=== PATIENT | female | born 1980 | race Caucasian/White ===

== ENCOUNTER 2017-08-30 07:42 | Emergency (ER) | payer SELFPAY ==
[~2017-08-30] VITALS: Ht 165.1 cm; Wt 129.7 kg
[2017-08-30 07:50] VITALS: BP 143/82
[2017-08-30] MEDS ORDERED: IV NORMAL SALINE 1,000ML 1,000 ML IV ONE (08:15)
--- NOTE | 2017-08-30 08:37 | EKG ---
[address] [address] Test Date: 2017-08-30 Test Time: 08:35:09 Pat Name: KRYS SIMMS Department: Room: Gender: F Product Specialist: CHRISTIANO : 1980 Requested By: SIDNEY QUINTANILLA Order Number: [id number] Reading MD: Castro Carlson MD Measurements Intervals [place] Rate: 82 P: 26 NM: 146 QRS: 31 QRSD: 86 T: 32 QT: 370 QTc: 435 Interpretive Statements SINUS RHYTHM Electronically Signed On 09-03-2017 10:40:14 [employer] by Castro Carlson MD
--- NOTE | 2017-08-30 08:38 | ED.ADGEN ---
Past History Past Medical History: Arthritis, Diabetes, Fibromyalgia Past Surgical History: Appendectomy Alcohol Use: None Adult General Chief Complaint Chief Complaint dizzy, low back ache, sleepiness HPI HPI Patient is a 37 year old female who presents with multiple complaints, primarily feeling fatigued since yesterday. She states she has had increased sleepy feeling since yesterday. Denies fever or dysuria, but reports bilateral low back aching. Reports h/o fibromyalgia, takes gapapentin and celbrex, which works well. Did not yet get flu shot this year. Denies known h/o thyroid problems. No cp/sob/cough/n/v/abd pain. PCP is Robby Perez. Review of Systems Review of Systems Constitutional: Denies fever or chills [] Eyes: Denies change in visual acuity, redness, or eye pain [] HENT: Denies nasal congestion or sore throat [] Respiratory: Denies cough or shortness of breath [] Cardiovascular: Denies chest pain GI: Denies abdominal pain, nausea, vomiting, bloody stools or diarrhea [] : Denies dysuria or hematuria [] Musculoskeletal: per hpi Integument: Denies rash or skin lesions [] Neurologic: Denies headache, focal weakness or sensory changes [] All other systems were reviewed and found to be within normal limits, except as documented in this note. Current Medications Current Medications Current Medications Medications (Trade) Dose Ordered Sig/Art Start Time Stop Time Status Last Admin Dose Admin Ketorolac Tromethamine (Toradol) 30 mg 1X ONCE 08/30/17 09:30 08/30/17 09:31 DC 08/30/17 09:20 30 MG Sodium Chloride 1,000 ml @ 1,000 mls/hr 1X ONCE 08/30/17 08:15 08/30/17 09:14 DC 08/30/17 09:03 1,000 MLS/HR Allergies Allergies Allergies Coded Allergies Type Severity Reaction Last Updated Verified aspirin Allergy Intermediate 08/30/17 Yes morphine Allergy Intermediate 08/30/17 Yes Physical Exam Physical Exam Constitutional: Well developed, well nourished, no acute distress, non-toxic appearance. Obese, thin hair, appears somewhat drowsy but when I had entered the room, pt was playing on her phone HENT: Normocephalic, atraumatic, bilateral external ears normal, oropharynx moist, no oral exudates, nose normal. [] Eyes: PERRLA, EOMI, conjunctiva normal, no discharge. [] Neck: Normal range of motion, no tenderness, supple, no stridor. [] Cardiovascular:Heart rate regular with regular rhythm, no murmur [] Lungs & Thorax: Bilateral breath sounds clear to auscultation , no wheeze, crackles or rhonchi Abdomen: soft, no tenderness, no masses, no pulsatile masses. [] Skin: Warm, dry, no erythema, no rash. [] Back: No midline tenderness,mild bilateral CVA tenderness. [] Extremities: No tenderness, no cyanosis, no clubbing, ROM intact, no edema. [] Neurologic: Alert and oriented X 3, normal motor function, normal sensory function, no focal deficits noted. CN II-XII intact Psychologic: Affect normal, judgement normal, mood normal. [] Current Patient Data Vital Signs Vital Signs Date Time Temp Pulse Resp B/P (MAP) Pulse Ox O2 Delivery O2 Flow Rate FiO2 08/30/17 07:50 98.8 95 16 96 Room Air Lab Results Laboratory Tests Test 08/30/17 08:22 08/30/17 08:30 08/30/17 08:35 08/30/17 08:50 White Blood Count 9.6 x10^3/uL (4.0-11.0) Red Blood Count 5.80 x10^6/uL (3.50-5.40) H Hemoglobin 15.7 g/dL (12.0-15.5) H Hematocrit 45.9 % (36.0-47.0) Mean Corpuscular Volume 79 fL (79-100) Mean Corpuscular Hemoglobin 27 pg (25-35) Mean Corpuscular Hemoglobin Concent 34 g/dL (31-37) Red Cell Distribution Width 14.5 % (11.5-14.5) Platelet Count 340 x10^3/uL (140-400) Neutrophils (%) (Auto) 67 % (31-73) Lymphocytes (%) (Auto) 24 % (24-48) Monocytes (%) (Auto) 5 % (0-9) Eosinophils (%) (Auto) 3 % (0-3) Basophils (%) (Auto) 1 % (0-3) Neutrophils # (Auto) 6.5 x10^3uL (1.8-7.7) Lymphocytes # (Auto) 2.3 x10^3/uL (1.0-4.8) Monocytes # (Auto) 0.5 x10^3/uL (0.0-1.1) Eosinophils # (Auto) 0.3 x10^3/uL (0.0-0.7) Basophils # (Auto) 0.1 x10^3/uL (0.0-0.2) Urine Collection Type Unknown Urine Color Melody Urine Clarity Clear Urine pH 5.5 Urine Specific [place] 1.025 Urine Protein Neg (NEG-TRACE) Urine Glucose (UA) 100 mg/dL (NEG) Urine Ketones (Stick) 15 mg/dL (NEG) Urine Blood Small (NEG) Urine Nitrite Neg (NEG) Urine Bilirubin Neg (NEG) Urine Urobilinogen Dipstick 0.2 mg/dL (0.2 mg/dL) Urine Leukocyte Esterase Neg (NEG) Influenza Type A (Rapid) Negative (NEGATIVE) Influenza Type B (Rapid) Negative (NEGATIVE) Urine Opiates Screen Neg (NEG) Urine Methadone Screen Neg (NEG) Urine Barbiturates Neg (NEG) Urine Phencyclidine Screen Neg (NEG) Urine Amphetamine/Methamphetamine Neg (NEG) Urine Benzodiazepines Screen Neg (NEG) Urine Cocaine Screen Neg (NEG) Urine Cannabinoids Screen Neg (NEG) Urine Ethyl Alcohol Neg (NEG) Test 08/30/17 09:41 POC Hemoglobin 15.6 gm/dL POC Hematocrit 46 % POC Sodium 135 mmol/L (135-145) POC Potassium 3.9 mmol/L (3.5-5.0) POC Chloride 99 mmol/L (98-110) POC Total CO2 24 mmol/L (23-32) Anion Gap 16 mmol/L (6-14) H POC Blood Urea Nitrogen 11 mg/dL (8-26) POC Creatinine 0.6 mg/dL (0.5-1.4) Glucose Level 253 mg/dL (60-99) H POC Ionized Calcium ([place]) 1.16 mmol/L (1.13-1.32) EKG EKG 82 bpm, sinus, normal axis, normal intervals, no ST elevation or depression, T waves nonischemic, interpreted by me.[] Radiology/Procedures Radiology/Procedures [] Course & Med Decision Making Course & Med Decision Making Pertinent Labs and Imaging studies reviewed. (See chart for details) pt given IV fluids, ua, labs, ekg obtained. Cr normal, IV Toradol given. No acute findings on labs/ua/ekg. Neuro exam normal. I suspect the patient may have unwanted side effects of her pain relieving medications. I recommended the pt get rest, f/u closely with Dr. Perez and return to the ER if any worsening or new concerning symptoms. Pt agreeable. After the pt left, she did go to her PCP, Dr. Perez. He called and wondered why CT head was not performed. I explained that pt did not have any signs of intracranial injury or bleed, her CN II-XII intact, no focal deficits. I offered for pt to return and have CT of head performed through ER or as outpt. He stated he would inform the patient. I then contacted the pt to explain the same, the reported the patient went home to rest because she normally gets "more" tired after receiving Toradol (which she received in the ED) and they wanted to see how pt did after sleeping more. I again stated strict return precautions and they stated they might return today if she didn't improve. TSH is still pending at 1200 Final Impression Final Impression Fatigue Myalgias[] Problems: Dragon Disclaimer Dragon Disclaimer This electronic medical record was generated, in whole or in part, using a voice recognition dictation system. SIDNEY QUINTANILLA MD Aug 30, 2017 08:38
[2017-08-30 08:41] LABS: BASO # 0.1 x10^3/uL (0.0-0.2); BASO % 1 % (0-3); EOS # 0.3 x10^3/uL (0.0-0.7); EOS % 3 % (0-3); HEMATOCRIT 45.9 % (36.0-47.0); HEMOGLOBIN 15.7 g/dL (12.0-15.5); LYMPH # 2.3 x10^3/uL (1.0-4.8); LYMPH % 24 % (24-48); MEAN CORPUSCULAR HEMOGLOBIN 27 pg (25-35); MEAN CORPUSCULAR HGB CONC 34 g/dL (31-37); MEAN CORPUSCULAR VOLUME 79 fL (79-100); MONO # 0.5 x10^3/uL (0.0-1.1); MONO % 5 % (0-9); NEUT # 6.5 x10^3uL (1.8-7.7); NEUT % 67 % (31-73); PLATELET COUNT 340 x10^3/uL (140-400); RED CELL DISTRIBUTION WIDTH 14.5 % (11.5-14.5); WHITE BLOOD COUNT 9.6 x10^3/uL (4.0-11.0)
[2017-08-30 08:48] LABS: HEMOGLOBIN ISTAT 15.6 gm/dL; POTASSIUM ISTAT 3.9 mmol/L (3.5-5.0)
[2017-08-30 09:08] LABS: INFLUENZA A PATIENT NEGATIVE (NEGATIVE); INFLUENZA B PATIENT NEGATIVE (NEGATIVE)
[2017-08-30 09:20] LABS: AMPHETAMINE/METHAMPHETAMINE NEG (NEG); BARBITURATES NEG (NEG); BENZODIAZEPINES NEG (NEG); CANNABINOIDS NEG (NEG); COCAINE NEG (NEG); METHADONE NEG (NEG); OPIATES NEG (NEG); PHENCYCLIDINE NEG (NEG)
[2017-08-30 09:24] LABS: BILIRUBIN,URINE NEG (NEG); CLARITY,URINE CLEAR; COLOR,URINE AMBER; GLUCOSE,URINE 100 mg/dL (NEG); NITRITE,URINE NEG (NEG); UROBILINOGEN,URINE 0.2 mg/dL (0.2 mg/dL)
[2017-08-30] MEDS ORDERED: KETOROLAC 30 MG/ML VIAL. IV ONE (09:30)
[2017-08-31] MEDS ORDERED: METF10002 PO (00:13)
[2017-08-31] MEDS ORDERED: CELE200C PO (00:13)
[2017-08-31] MEDS ORDERED: GABA-586 PO (00:13)
== END 2017-08-30 10:11 | disposition home or self-care (01) ==
LOC: ER 07:42
DX: R53.83 Other fatigue (principal); E11.9 Type 2 diabetes mellitus without complications; M79.7 Fibromyalgia; M19.90 Unspecified osteoarthritis, unspecified site; Z88.6 Allergy status to analgesic agent; Z88.5 Allergy status to narcotic agent
CPT/HCPCS: 36415; 80047; 80307; 81003; 84443; 85025; 87804; 93005; 96361; 96374; 99285; J1885; G0479; J7030

== ENCOUNTER 2017-08-30 16:43 | Inpatient (IN) | payer SELFPAY ==
[~2017-08-30] VITALS: Ht 165.1 cm; Wt 128.8 kg
--- NOTE | 2017-08-30 17:01 | RAD ---
EXAM: CT head without contrast. HISTORY: Dizziness, facial numbness, fatigue. TECHNIQUE: Computed tomography of the head was performed without intravenous contrast. COMPARISON: None. FINDINGS: There is no intracranial hemorrhage. Horvath-white differentiation is preserved. The ventricles are normal in size and position. The visualized paranasal sinuses appear clear. The orbits are unremarkable. The temporal bones are unremarkable. The calvarium reveals no suspicious lesions. IMPRESSION: 1. No acute intracranial findings. *One or more of the following individualized dose reduction techniques were utilized for this examination: 1. Automated exposure control. 2. Adjustment of the mA and/or kV according to patient size. 3. Use of iterative reconstruction technique.
--- NOTE | 2017-08-30 18:07 | ED.ADGEN ---
Past History Past Medical History: Arthritis, Diabetes, Fibromyalgia Past Surgical History: Appendectomy Alcohol Use: None Drug Use: None Adult General Chief Complaint Chief Complaint Dizziness HPI HPI Patient is a 37 year old female who presents with ongoing dizziness and fatigue. Patient was seen in the ER earlier today for same complaints. Patient now admits that she was seen by her primary care doctor on Sunday has been having these symptoms intermittently since then. She thought it was due to elevated blood sugar but today her blood sugar was in the 200s. She states that she feels extremely fatigued, unable to stay awake. She denies any trauma, no significant headaches. She reports that she feels numb throughout her face but she can feel normal sensation when you touch her face. She denies any other focal weakness. reports the patient appears to be unsteady on her feet but she walked in with a normal gait. Patient was seen by her primary care doctor who is concerned about performing a CT of her head. Patient was instructed to return to the ER but went home and slept today. She then woke up and felt better and ate a meal but then came in due to the dizziness continuing. She had lab work, EKG performed earlier today, all unremarkable. Review of Systems Review of Systems Constitutional: Denies fever or chills [] Eyes: Denies change in visual acuity, redness, or eye pain [] HENT: Denies nasal congestion or sore throat [] Respiratory: Denies cough or shortness of breath [] Cardiovascular: Denies chest pain GI: Denies abdominal pain, nausea, vomiting, bloody stools or diarrhea [] : Denies dysuria or hematuria [] Musculoskeletal: Denies back pain or joint pain [] Integument: Denies rash or skin lesions [] Neurologic: Denies headache, focal weakness All other systems were reviewed and found to be within normal limits, except as documented in this note. Allergies Allergies Allergies Coded Allergies Type Severity Reaction Last Updated Verified aspirin Allergy Intermediate 08/30/17 Yes morphine Allergy Intermediate 08/30/17 Yes Physical Exam Physical Exam Constitutional: Well developed, well nourished, no acute distress, non-toxic appearance, intermittently slurs her speech but does speaks in full sentences, obese, awake and then appears drowsy HENT: Normocephalic, atraumatic, bilateral external ears normal, oropharynx moist, no oral exudates, nose normal. [] Eyes: PERRLA, EOMI, conjunctiva normal, no discharge. [] Neck: Normal range of motion, no tenderness, supple, no stridor. [] Cardiovascular:Heart rate regular rhythm, no murmur [] Lungs & Thorax: Bilateral breath sounds clear to auscultation [] Abdomen: Bowel sounds normal, soft, no tenderness, no masses, no pulsatile masses. [] Skin: Warm, dry, no erythema, no rash. [] Back: No tenderness, no CVA tenderness. [] Extremities: No tenderness, no cyanosis, no clubbing, ROM intact, no edema. [] Neurologic: Alert and oriented X 3, normal motor function, normal sensory function, no focal deficits noted. Cranial nerves II through XII intact Current Patient Data Vital Signs Vital Signs Date Time Temp Pulse Resp B/P (MAP) Pulse Ox O2 Delivery O2 Flow Rate FiO2 08/30/17 17:08 97.8 101 16 95 Room Air 08/30/17 17:05 133/86 (102) EKG EKG EKG reviewed from earlier today[] Radiology/Procedures Radiology/Procedures CT head: IMPRESSION: 1. No acute intracranial findings. Course & Med Decision Making Course & Med Decision Making Pertinent Labs and Imaging studies reviewed. (See chart for details) Patient did not require any interventions here in the ED. Her CT of her head was negative. I talked with Dr. Li who agreed to accept this patient for overnight observation. We will limit her medication to avoid any side effects that may be causing her drowsiness. Final Impression Final Impression Dizziness fatigue[] Problems: Dragon Disclaimer Dragon Disclaimer This electronic medical record was generated, in whole or in part, using a voice recognition dictation system. SIDNEY QUINTANILLA MD Aug 30, 2017 18:07
[2017-08-30 18:46] VITALS: BP 124/78
[2017-08-30 23:11] VITALS: BP 119/77
[2017-08-31] VITALS (9 sets, daily range): BP systolic 114–147; BP diastolic 68–87
[2017-08-31] MEDS ORDERED: GABA-586 PO (00:13)
[2017-08-31] MEDS ORDERED: CELE200C PO (00:13)
[2017-08-31] MEDS ORDERED: METF10002 PO (00:13)
[2017-08-31] MEDS: CELECOXIB 200 MG CAPSULE PO SCH ×2 (00:26→20:52)
[2017-08-31] MEDS: GABAPENTIN 300 MG CAPSULE. PO SCH ×2 (00:26→20:53)
[2017-08-31] MEDS ORDERED: ONDANSETRON ODT 4 MG TAB.RAPDIS PO PRN (08:15)
[2017-08-31 08:19] LABS: BASO # 0.1 x10^3/uL (0.0-0.2); BASO % 1 % (0-3); EOS # 0.3 x10^3/uL (0.0-0.7); EOS % 3 % (0-3); HEMATOCRIT 44.3 % (36.0-47.0); HEMOGLOBIN 15.2 g/dL (12.0-15.5); LYMPH # 2.5 x10^3/uL (1.0-4.8); LYMPH % 30 % (24-48); MEAN CORPUSCULAR HEMOGLOBIN 27 pg (25-35); MEAN CORPUSCULAR HGB CONC 34 g/dL (31-37); MEAN CORPUSCULAR VOLUME 79 fL (79-100); MONO # 0.4 x10^3/uL (0.0-1.1); MONO % 5 % (0-9); NEUT # 5.1 x10^3uL (1.8-7.7); NEUT % 61 % (31-73); PLATELET COUNT 343 x10^3/uL (140-400); RED BLOOD COUNT 5.58 x10^6/uL (3.50-5.40); RED CELL DISTRIBUTION WIDTH 14.7 % (11.5-14.5); WHITE BLOOD COUNT 8.3 x10^3/uL (4.0-11.0)
[2017-08-31] MEDS: metFORMIN 500 MG TABLET PO SCH ×2 (08:25→17:19)
[2017-08-31 08:31] LABS: ALBUMIN 3.4 g/dL (3.4-5.0); ALBUMIN/GLOBULIN RATIO 0.9 (1.0-1.7); C REACTIVE PROTEIN 10.5 mg/L (0-3.3); CALCIUM 8.6 mg/dL (8.5-10.1); CREATININE 0.8 mg/dL (0.6-1.0); GFR 80.3; TOTAL BILIRUBIN 0.6 mg/dL (0.2-1.0); TOTAL PROTEIN 7.1 g/dL (6.4-8.2)
[2017-08-31 09:22] LABS: SEDIMENTATION RATE 6 (0-25)
[2017-08-31] MEDS ORDERED: DEXTROSE 50% 25 GM / 50ML DISP.SYRIN. IV PRN (12:15)
[2017-08-31] MEDS: IV NORMAL SALINE 1,000ML 1,000 ML IV SCH (12:27)
[2017-08-31] MEDS: INSULIN ASPART 300 UNITS/3 ML INSULN.PEN SQ SCH ×3 (12:42→21:02)
--- NOTE | 2017-08-31 18:57 | HP ---
ADMIT DATE: 08/30/2017 HISTORY OF PRESENT ILLNESS: The patient is a 37-year-old female patient who came to the Emergency Room complaining of ongoing dizziness and fatigue. She apparently was seen by her primary care physician on Sunday, as she is having these symptoms intermittently since then. She thought it was due to elevated sugar, but her blood sugar was in the 200s. She states that she feels extremely fatigued, unable to stay awake. She denied any trauma or significant headaches. She previously had numbness throughout her face, but she can feel normal sensation when she touches her face. She denied any other focal weakness. Her reports that the patient appears to be unsteady on her feet. Apparently, she walked to the Emergency Room with a normal gait and although she is able to stand, she is unable to take steps and she was extensively evaluated yesterday including a CT scan of the head and that was normal. All her lab works were normal and was admitted for further evaluation and treatment. PAST MEDICAL HISTORY: Significant for type 2 diabetes mellitus that was diagnosed in 09/2016. She has fibromyalgia, tendinitis and arthritis. PAST SURGICAL HISTORY: Significant for appendectomy in the year of 1999. ALLERGIES: She is allergic to ASPIRIN and MORPHINE. MEDICATIONS: She is currently on following medications: She is on metformin 1000 mg twice a day with meals, gabapentin 900 mg at bedtime. She is on Celebrex 200 mg at bedtime. She is also on Topamax 50 mg at bedtime as well as Trulicity and most recently she was started on Contrave. FAMILY HISTORY: She has 2 sisters, all younger. Her mother is still alive at the age of 57. Father is alive, does not know him very well, but apparently is known to have epilepsy. SOCIAL HISTORY: She lives with her significant other. She smokes 10 cigarettes a day. Does not drink alcohol or use any recreational drugs. She is filing for disability. REVIEW OF SYSTEMS: The patient denied any blurring of vision, cataract, glaucoma or macular degeneration. Denied any earache, tinnitus or sensorineural deafness. Denied any nosebleeds, stuffy nose or postnasal drip. Denied any sore throat, sore tongue, toothache, hoarseness of voice or difficulty swallowing. She did have some nausea, but no vomiting. Denied any diarrhea or constipation. Denied any hematemesis, melena or hematochezia. Denied any dysuria, frequency or hematuria. She denied any chest pain, shortness of breath, orthopnea or paroxysmal nocturnal dyspnea. Denied any cough, phlegm or hemoptysis. Denied any chills, rigors or fever. She did complain of dizziness and things are still spinning around. PHYSICAL EXAMINATION: GENERAL: On examining her on arrival to the Emergency Room, she is doing well and was clearly in no apparent respiratory distress. No pallor, jaundice, cyanosis, or thyromegaly. No jugular venous distention. No lower limb edema. VITAL SIGNS: Her heart rate was 82, blood pressure was 133/86, temperature was 97.8, respiratory rate was 16, and oxygen saturation was 95%. HEAD, EYES, EARS, NOSE AND THROAT: Normocephalic, atraumatic. NECK: Supple. HEART: Showed normal first and second heart sounds with no gallop, rub or murmur. CHEST: Clear to auscultation. No crepitation or rhonchi. ABDOMEN: Distended, soft, nontender. No guarding or rigidity. No organomegaly. Hernial orifices intact. Bowel sounds normal. NEUROLOGIC: She was alert, oriented x 3. She has normal motor function, normal sensory function. No focal deficits noted. Cranial nerves from the optic nerve to the 12th nerve, they are all intact. LABORATORY DATA: She has had lab work done, which showed a white cell count of 8300; hemoglobin 15; hematocrit 44; MCV was 79 and platelet count of 343,000. Her chemistry showed a serum sodium 134, potassium 4, chloride 100, bicarbonate 25, anion gap of 9, BUN 12, creatinine 0.8, estimated GFR was 80 mL per minute. Her glucose was 215, calcium was 8.6. Total bilirubin, AST, ALT were normal. Alkaline phosphatase 128. Her total protein was 7.1, albumin was 3.4. She had had a CT scan of the head, showed that there is no intracranial hemorrhage, hernandez white matter differentiation is preserved. The ventricles are normal in size and position. The visualized paranasal sinuses appeared clear. The orbits are unremarkable. Temporal bones are unremarkable. The calvarium reveals no suspicious lesions. Her urinalysis showed the urine was flynn, clear with a pH of 5.5, specific gravity of 1.025. The urine was negative for protein, trace of glucose, trace of ketones, small amount of blood, negative for nitrite and negative for leukocyte esterase. Her urine toxicology screen was essentially negative. Her influenza A and B were negative. ASSESSMENT AND PLAN: The patient was admitted for further evaluation and treatment and to consult Dr. Umaña for possible benign positional vertigo versus acute labyrinthitis. MICHAEL ANDERSON MD DR: THI/martha JOB#: [id number] / [id number]
[2017-08-31] MEDS ORDERED: TOPIRAMATE 25 MG TABLET. PO SCH (21:00)
[2017-09-01] MEDS: IV NORMAL SALINE 1,000ML 1,000 ML IV SCH (03:27)
[2017-09-01 05:36] LABS: ALBUMIN/GLOBULIN RATIO 0.9 (1.0-1.7); CALCIUM 8.6 mg/dL (8.5-10.1); CREATININE 0.6 mg/dL (0.6-1.0); GFR 111.9; POTASSIUM 3.9 mmol/L (3.5-5.1); TOTAL BILIRUBIN 0.5 mg/dL (0.2-1.0); TOTAL PROTEIN 6.3 g/dL (6.4-8.2)
[2017-09-01 06:03] VITALS: BP 119/64
[2017-09-01 06:05] VITALS: BP 126/83
[2017-09-01] MEDS: INSULIN ASPART 300 UNITS/3 ML INSULN.PEN SQ SCH ×2 (07:30→12:27)
[2017-09-01] MEDS: metFORMIN 500 MG TABLET PO SCH (08:09)
[2017-09-01 11:00] VITALS: BP 111/72
--- NOTE | 2017-09-01 13:52 | PN ---
DATE: 08/31/2017 SUBJECTIVE: The patient was admitted yesterday with dizziness, weakness that has been going on for almost since last Sunday. She continued to complain of numbness in her face and also weakness in both legs, although she denied any tingling or numbness. She is having difficulty standing and is unable to walk, which is unusual and she is normally able to ambulate. PHYSICAL EXAMINATION: GENERAL: When I examined her today, she looked well and was clearly in no apparent distress. No pallor, jaundice, cyanosis, or thyromegaly. No jugular venous distention. No limb edema. VITAL SIGNS: Her heart rate was 69, blood pressure 127/79, temperature was 97.6, respiratory rate 20, and oxygen saturation was 99% on room air. HEAD, EYES, EARS, NOSE AND THROAT: Showed normocephalic, atraumatic. NECK: Supple. HEART: Showed normal first and second heart sounds with no gallop, rub or murmur. CHEST: Clear to auscultation. No crepitation or rhonchi. ABDOMEN: Distended, soft, nontender. No guarding or rigidity. No organomegaly. All hernial orifices intact. Bowel sounds normal. NEUROLOGIC: She was awake, alert, responding appropriately. All her cranial nerves intact. She was able to move her extremities without difficulty. However, we are able to ____ of the bed and get back into the bed; however, when she stood up, she has a wide-based gait and she could not bring her fist together and she was unsteady even without closing her eyes. I could not elicit her reflexes despite reinforcement. I could not elicit any sensory deficit given that the vague nature of her complaint and the weakness, I am concerned about the possibility of Guillain-Arden syndrome and I have consulted Dr. Umaña to see her for further evaluation and treatment. MICHAEL ANDERSON MD DR: THI/martha JOB#: [id number] / [id number]
[2017-09-01 15:28] VITALS: BP 137/89
--- NOTE | 2017-09-02 01:31 | DS ---
DATE OF DISCHARGE: 09/01/2017 HOSPITAL COURSE: The patient is a 37-year-old female patient who was admitted complaining of ongoing dizziness and fatigue. She also has marked weakness in both legs and difficulty walking. She was extensively investigated in the Emergency Room, had a CT scan of the head and was normal. Her lab works were within normal limits and was admitted for further evaluation. When I saw her today, she stated that her dizziness is much improved. She is now able to move, although she still has some weakness. She was seen by Dr. Umaña who apparently recommended that she should follow with him in his office and also arrange for her to start physical and occupational therapy as an outpatient. PHYSICAL EXAMINATION: GENERAL: When I examined her, she looked well and was clearly in no apparent respiratory distress, pale. No jaundice, cyanosis or thyromegaly. No jugular venous distention. No limb edema. VITAL SIGNS: His heart rate was 76, blood pressure was 111/72, temperature was 97.5, respiratory rate 20, and oxygen saturation was 95% on room air. HEAD, EYES, EARS, NOSE AND THROAT: Normocephalic, atraumatic. NECK: Supple. HEART: Showed normal first and second heart sounds with no gallop, rub or murmur. CHEST: Clear to auscultation. No crepitation or rhonchi. ABDOMEN: Distended, soft, nontender. NEUROLOGIC: She is awake, alert, oriented to time, place and person. Cranial nerves intact. She moves extremities without difficulty. She apparently has been able to ambulate today to the bathroom without assistance or assistive devices. LABORATORY DATA: This morning showed a serum sodium of 137, potassium 3.9, chloride 104, bicarbonate 27, anion gap of 6, BUN 9, creatinine 0.6, estimated GFR was 111 mL per minute. Her glucose 176, calcium was 8.6. Total bilirubin, AST, ALT, alkaline phosphatase were normal. CK was only 31, total protein 6.3, albumin 3. Her white cell count was 8300; hemoglobin 15; hematocrit 44; MCV 79 and platelet count 343,000. DISCHARGE MEDICATIONS: She was discharged to continue on following medications: Celebrex 200 mg at bedtime, gabapentin 900 mg at bedtime, metformin 1000 mg twice a day. FINAL DISCHARGE DIAGNOSES: Dizziness has largely subsided, lower extremity weakness that also improved. She has fibromyalgia, type 2 diabetes. The patient was advised to follow up as an outpatient with Dr. Umaña. MICHAEL ANDERSON MD DR: THI/martha JOB#: [id number] / [id number]
--- NOTE | 2017-09-02 03:41 | CONS ---
DATE OF CONSULTATION: 08/31/2017 NEUROLOGIC CONSULTATION REASON FOR CONSULTATION: Difficulty to walk and severe dizziness. HISTORY OF PRESENT ILLNESS: This is a 37-year-old right-handed female who was admitted to Emergency Room after she presented with chief complaint of severe dizziness described as unsteadiness. The symptoms has been present intermittently for the last few days, but got worsened yesterday. The patient has difficulty to stand up and walk without assistance; however, she entered the Emergency Room walking. She denies nausea, vomiting, headaches, photophobia or phonophobia, but she complains of dizzy spell when she turns her head to any directions. She has not had any falls. The patient denies lower back pain, weakness of the lower extremity, bowel or bladder dysfunction. She also complains of numbness and tingling of the face. Initial nonenhanced head CT scan revealed no evidence of acute intracranial process. The patient stated her blood sugar has been in the range between 200s-500s since she has been dizzy. The patient stated meclizine has not improved her symptoms, has not alleviated her dizziness. PAST MEDICAL HISTORY: Significant for poorly controlled diabetes mellitus type 2, fibromyalgia, arthritis and tendinitis. PAST SURGICAL HISTORY: Significant for appendectomy in 1999. FAMILY HISTORY: Noncontributory. SOCIAL HISTORY: The patient is engaged. She smokes 10 cigarettes daily. She denies alcohol drinking or illicit drug use. She is applying for disability. CURRENT HOME MEDICATIONS: Includes gabapentin 900 mg at bedtime, Celebrex 200 mg daily, Topamax 50 mg at bedtime, Trulicity. Metformin 1000 mg twice daily. ALLERGIES: ASPIRIN AND MORPHINE. REVIEW OF SYSTEMS: A 10-point review of system was performed as mentioned above in the history of present illness. PHYSICAL EXAMINATION: GENERAL: Obese white female, not in acute distress. She weighs 284 pounds. VITAL SIGNS: Blood pressure 130/80, respiratory rate 20, pulse is 75 and regular, temperature 98, oxygen saturation is 95% on room air. HEENT: Normocephalic, atraumatic, otherwise unremarkable. NECK: Supple. Negative for carotid bruit, lymphadenopathy or thyromegaly. LUNGS: Clear to A and P. CARDIOVASCULAR: Regular rate and rhythm, normal S1, S2. There is no S3, S4 or murmur. ABDOMEN: Soft. Bowel sounds positive. EXTREMITIES: Negative for cyanosis, clubbing or pitting edema. NEUROLOGIC: Mental status: The patient is alert and oriented x 3. Speech is fluent. There is no language dysfunction. Memory, judgment, and abstract thinking are normal. The patient denies hallucination or delusion. CRANIAL NERVES: Visual baum are full. The pupils are reactive to light and accommodation. The extraocular movements are intact. There is no nystagmus. There is no facial motor or sensory deficit. Hearing is intact bilaterally. The palate is elevated symmetrically. Sternocleidomastoid muscles are powerful bilaterally. The patient shrugs her shoulders symmetrically. Protrudes her tongue in the midline without fasciculation or atrophy. MOTOR: No focal muscle bulk was seen. The tone is normal. The strength is 5/5 throughout. Sensory examination revealed normal pinprick, light touch, vibratory and position senses. Deep tendon reflexes were symmetric and hypoactive with absent Achilles responses and gait, unsteady stance. LABORATORY DATA: CBC revealed white blood cells of 9.3 thousand, hemoglobin 15.2, hematocrit 44.3, platelet count 343,000. Chemistry revealed sodium of 137, potassium 3.9, chloride 104, CO2 27, BUN 9, creatinine 0.6, glucose 176, CRP is high at 10.5, alkaline phosphatase is high at 117. IMPRESSION: 1. Acute dizziness described as unsteadiness aggravated by turning the head to any directions, rule out positional vertigo versus vestibulopathy nonresponding to meclizine. 2. Obesity with history of snoring at night, rule out obstructive sleep apnea. 3. Poorly controlled diabetes mellitus, arthritis, long history of fibromyalgia. RECOMMENDATIONS: 1. Vestibular exercises. 2. Aggressive weight loss. 3. Sleep study. 4. Continue with current management initiated by Dr. Li. 5. In case of continuous dizzy spell, MRI of the brain is recommended. M Rachel ROJAS MD DR: SAQIB/martha JOB#: [id number] / [id number]
== END 2017-09-01 14:00 | disposition home or self-care (01) | DRG 149 ==
LOC: ER 16:43 → 1 SOUTH 17:35
PROVIDERS: ADMIT Internal Medicine; ATTEND Internal Medicine
DX: R42 Dizziness and giddiness (principal); E11.65 Type 2 diabetes mellitus with hyperglycemia; M19.90 Unspecified osteoarthritis, unspecified site; Z68.42 Body mass index [BMI] 45.0-49.9, adult; E66.9 Obesity, unspecified; M79.7 Fibromyalgia; F17.210 Nicotine dependence, cigarettes, uncomplicated; Z90.49 Acquired absence of other specified parts of digestive tract; Z88.6 Allergy status to analgesic agent; Z88.5 Allergy status to narcotic agent; Z82.0 Family history of epilepsy and other diseases of the nervous system; Z79.84 Long term (current) use of oral hypoglycemic drugs; Z79.899 Other long term (current) drug therapy
CPT/HCPCS: 36415; 70450; 80053; 82550; 82947; 85025; 85651; 86140; J1815; Q0162; 99285-25; J7030

== ENCOUNTER 2019-10-30 13:58 | Emergency (ER) | payer SELFPAY ==
[~2019-10-30] VITALS: Ht 165.1 cm; Wt 122.6 kg
[~2019-10-30 13:58] MED LIST: CELE200C PO; GABA-586 PO; METF10007 PO
[2019-10-30 14:22] LABS: BASO # 0.1 x10^3/uL (0.0-0.2); BASO % 2 % (0-3); EOS # 0.2 x10^3/uL (0.0-0.7); EOS % 3 % (0-3); HEMATOCRIT 43.8 % (36.0-47.0); HEMOGLOBIN 14.6 g/dL (12.0-15.5); LYMPH # 2.4 x10^3/uL (1.0-4.8); LYMPH % 32 % (24-48); MEAN CORPUSCULAR HEMOGLOBIN 26 pg (25-35); MEAN CORPUSCULAR HGB CONC 33 g/dL (31-37); MEAN CORPUSCULAR VOLUME 79 fL (79-100); MONO # 0.4 x10^3/uL (0.0-1.1); MONO % 6 % (0-9); NEUT # 4.4 x10^3uL (1.8-7.7); NEUT % 59 % (31-73); PLATELET COUNT 312 x10^3/uL (140-400); RED BLOOD COUNT 5.58 x10^6/uL (3.50-5.40); RED CELL DISTRIBUTION WIDTH 14.3 % (11.5-14.5); WHITE BLOOD COUNT 7.5 x10^3/uL (4.0-11.0)
[2019-10-30 14:30] LABS: CALCIUM 8.9 mg/dL (8.5-10.1); CREATININE 0.7 mg/dL (0.6-1.0); GFR 92.7
[2019-10-30 14:36] LABS: ALBUMIN 3.3 g/dL (3.4-5.0); ALBUMIN/GLOBULIN RATIO 1.1 (1.0-1.7); TOTAL BILIRUBIN 0.4 mg/dL (0.2-1.0); TOTAL PROTEIN 6.4 g/dL (6.4-8.2)
--- NOTE | 2019-10-30 16:49 | RAD ---
EXAM: Pelvic sonogram. HISTORY: Vaginal bleeding. TECHNIQUE: Sonographic imaging of the pelvis was performed. COMPARISON: None. FINDINGS: The uterus measures 10.8 x 6.5 x 5.1 cm. There is a heterogeneous thickened endometrium measuring 16 mm. There is blood flow within the endometrium. The right ovary is obscured due to bowel. The left ovary demonstrates normal blood flow and contains a 2.1 cm dominant follicle/follicular cyst. There is no pelvic free fluid. There are nabothian cysts within the cervix. IMPRESSION: 1. Heterogeneous thickened and atrium with internal blood flow. No convincing endometrial mass, polyp or submucosal fibroid is seen. 2. Obscured right ovary. 3. 2.1 cm dominant left ovarian follicle/follicular cyst. Electronically signed by: Jenise Garcia MD (10/30/2019 4:46 PM) [facility]
[2019-10-30] MEDS ORDERED: KETOROLAC 30 MG/ML VIAL. ONE (16:57)
[2019-10-30] MEDS ORDERED: KETOROLAC 30 MG/ML VIAL. IVP ONE (17:10)
[2019-10-30] MEDS ORDERED: IV NORMAL SALINE 1,000ML 1,000 ML IV ONE (17:45)
[2019-10-30] MEDS ORDERED: MEDR10TA PO (18:04)
--- NOTE | 2019-10-30 18:04 | PHYS DOC ---
Past History Past Medical History: Arthritis, Diabetes, Fibromyalgia, Other Additional Past Medical Histor: TENDONNITIS KNEES, ELBOWS, SHOULDERS, HIPS; VERTIGO Past Surgical History: Appendectomy Alcohol Use: None Drug Use: None Adult General Chief Complaint Chief Complaint: VAGINAL BLEEDING HPI HPI Patient is a 39-year-old female who was brought here by EMS due to vaginal bleeding. Patient has history of vaginal bleeding off and on for several months, she was seen by her family doctor who put her of control medication. The bleeding stopped but after she finished her medication she started bleeding again. TODAY, while she was sitting on the toilet she started bleeding VAGINALLY AGAIN SO SHE CALLED EMS TO TAKE HER HERE FOR EVALUATION. She denies any fever. Patient says she is not because she is not sexually active. aLL OTHER ros IS NEGATIVE UNLESS OTHERWISE NOTED IN hpi Review of Systems Review of Systems See above Current Medications Current Medications Current Medications Medications (Trade) Dose Ordered Sig/Art Start Time Stop Time Status Last Admin Dose Admin Ketorolac Tromethamine (Toradol 30mg Vial) 30 mg STK-MED ONCE 10/30/19 16:57 10/30/19 16:57 DC Sodium Chloride 1,000 ml @ 1,000 mls/hr 1X ONCE 10/30/19 17:45 10/30/19 18:44 10/30/19 17:39 1,000 MLS/HR Allergies Allergies Allergies Coded Allergies Type Severity Reaction Last Updated Verified aspirin Allergy Intermediate 10/30/19 Yes morphine Allergy Intermediate 10/30/19 Yes Physical Exam Physical Exam See above Constitutional: Well developed, well nourished, no acute distress, non-toxic appearance. [] HENT: Normocephalic, atraumatic, bilateral external ears normal, oropharynx moist, no oral exudates, nose normal. [] Eyes: PERRLA, EOMI, conjunctiva normal, no discharge. [] Neck: Normal range of motion, no tenderness, supple, no stridor. [] Cardiovascular:Heart rate regular rhythm, no murmur [] Lungs & Thorax: Bilateral breath sounds clear to auscultation [] Abdomen: Bowel sounds normal, soft, tHERE SUPRAPUBIC tenderness TO PALPATION, no masses, no pulsatile masses. Patient said the bleeding almost stopped now. Skin: Warm, dry, no erythema, no rash. [] Back: No tenderness, no CVA tenderness. [] Extremities: No tenderness, no cyanosis, no clubbing, ROM intact, no edema. [] Neurologic: Alert and oriented X 3, normal motor function, normal sensory function, no focal deficits noted. [] Psychologic: Affect normal, judgement normal, mood normal. [] Current Patient Data Vital Signs Vital Signs Date Time Temp Pulse Resp B/P (MAP) Pulse Ox O2 Delivery O2 Flow Rate FiO2 10/30/19 15:28 80 18 131/92 (105) 95 10/30/19 14:05 97.6 Room Air Lab Results Laboratory Tests Test 10/30/19 14:05 White Blood Count 7.5 x10^3/uL (4.0-11.0) Red Blood Count 5.58 x10^6/uL (3.50-5.40) H Hemoglobin 14.6 g/dL (12.0-15.5) Hematocrit 43.8 % (36.0-47.0) Mean Corpuscular Volume 79 fL (79-100) Mean Corpuscular Hemoglobin 26 pg (25-35) Mean Corpuscular Hemoglobin Concent 33 g/dL (31-37) Red Cell Distribution Width 14.3 % (11.5-14.5) Platelet Count 312 x10^3/uL (140-400) Neutrophils (%) (Auto) 59 % (31-73) Lymphocytes (%) (Auto) 32 % (24-48) Monocytes (%) (Auto) 6 % (0-9) Eosinophils (%) (Auto) 3 % (0-3) Basophils (%) (Auto) 2 % (0-3) Neutrophils # (Auto) 4.4 x10^3uL (1.8-7.7) Lymphocytes # (Auto) 2.4 x10^3/uL (1.0-4.8) Monocytes # (Auto) 0.4 x10^3/uL (0.0-1.1) Eosinophils # (Auto) 0.2 x10^3/uL (0.0-0.7) Basophils # (Auto) 0.1 x10^3/uL (0.0-0.2) Prothrombin Time < 9.3 SEC (9.4-11.4) L Prothrombin Time INR 0.9 (0.9-1.1) Activated Partial Thromboplast Time 24 SEC (23-33) Maternal Serum HCG Beta Subunit 1 mIU/mL (0-6) Sodium Level 139 mmol/L (136-145) Potassium Level 4.0 mmol/L (3.5-5.1) Chloride Level 103 mmol/L (98-107) Carbon Dioxide Level 24 mmol/L (21-32) Anion Gap 12 (6-14) Blood Urea Nitrogen 8 mg/dL (7-20) Creatinine 0.7 mg/dL (0.6-1.0) Estimated GFR (Cockcroft-Gault) 92.7 BUN/Creatinine Ratio 11 (6-20) Glucose Level 413 mg/dL (70-99) H Calcium Level 8.9 mg/dL (8.5-10.1) Total Bilirubin 0.4 mg/dL (0.2-1.0) Aspartate Amino Transferase (AST) 24 U/L (15-37) Alanine Aminotransferase (ALT) 52 U/L (14-59) Alkaline Phosphatase 188 U/L (46-116) H Total Protein 6.4 g/dL (6.4-8.2) Albumin 3.3 g/dL (3.4-5.0) L Albumin/Globulin Ratio 1.1 (1.0-1.7) EKG EKG [] Radiology/Procedures Radiology/Procedures [][place] [id number] IMAGING REPORT Signed PATIENT: KRYS SIMMS ACCOUNT: [id number] : 1980 LOCATION: ER AGE: 39 SEX: F EXAM STATUS: REG ER ORD. PHYSICIAN: JOSÉ MIGUEL VELAZQUEZ DO REASON: PELVIC PAIN, VAGINAL BLEEDING PROCEDURE: US PELVIS W/TV EXAM: Pelvic sonogram. HISTORY: Vaginal bleeding. TECHNIQUE: Sonographic imaging of the pelvis was performed. COMPARISON: None. FINDINGS: The uterus measures 10.8 x 6.5 x 5.1 cm. There is a heterogeneous thickened endometrium measuring 16 mm. There is blood flow within the endometrium. The right ovary is obscured due to bowel. The left ovary demonstrates normal blood flow and contains a 2.1 cm dominant follicle/follicular cyst. There is no pelvic free fluid. There are nabothian cysts within the cervix. IMPRESSION: 1. Heterogeneous thickened and atrium with internal blood flow. No convincing endometrial mass, polyp or submucosal fibroid is seen. 2. Obscured right ovary. 3. 2.1 cm dominant left ovarian follicle/follicular cyst. Electronically signed by: Jenise Gifford MD (10/30/2019 4:46 PM) [facility] DICTATED AND SIGNED BY: JENISE GIFFORD MD DATE: 10/30/19 [id number] CC: EDEN JENNINGS DO; JOSÉ MIGUEL VELAZQUEZ DO ~ Course & Med Decision Making Course & Med Decision Making Pertinent Labs and Imaging studies reviewed. (See chart for details) She has a 39-year-old female with dysfunctional uterine bleeding, she will be discharged home with Provera, she will need to follow up with [facility] for further evaluation. She is amenable to plan of care. Dragon Disclaimer Dragon Disclaimer This electronic medical record was generated, in whole or in part, using a voice recognition dictation system. Departure Departure: Impression: Primary Impression: Dysfunctional uterine bleeding Disposition: HOME, SELF-CARE Condition: STABLE Referrals: EDEN JENNINGS DO (PCP) follow up with your doctor on Sunday for [facility] referral. Patient Instructions: Uterine Bleeding, Dysfunctional Scripts Medroxyprogesterone Acetate (PROVERA) 10 Mg Tablet 1 TAB PO DAILY for vaginal bleeding for 14 Days, #14 TAB Prov: JOSÉ MIGUEL VELAZQUEZ DO 10/30/19 JOSÉ MIGUEL VELAZQUEZ DO Oct 30, 2019 18:04
[2019-10-30 18:55] VITALS: BP 151/86
== END 2019-10-30 18:57 | disposition home or self-care (01) ==
LOC: ER 14:00
DX: N93.8 Other specified abnormal uterine and vaginal bleeding (principal); M19.90 Unspecified osteoarthritis, unspecified site; E11.9 Type 2 diabetes mellitus without complications; M79.7 Fibromyalgia; Z90.89 Acquired absence of other organs; Z88.6 Allergy status to analgesic agent; Z88.5 Allergy status to narcotic agent
CPT/HCPCS: 36415; 76830; 76856; 80053; 84702; 85025; 85610; 85730; 96374; 99285; J1885; J7030